=== PATIENT | male | born 1955 | race Caucasian/White ===

== ENCOUNTER 2018-04-26 09:22 | Inpatient (IN) ==
[2018-04-26 10:31] LABS: Hematocrit 43.6 % (42.0-52.0); Hemoglobin 15.4 gm/dL (13.5-18.0); Mean Cell Volume 94.4 fl (78-100); Mean Corpuscular Hemoglobin 33.3 pg (27-31); Mean Corpuscular Hgb Conc 35.3 g/dl (32-36); Mean Platelet Volume 10.4 fl (8-11.3); Neutrophil # 17.4 K/mm3 (1.3-6.0); Neutrophil % 89.1 % (42-75.0); Platelet Count 127 K/mm3 (150-450); Red Blood Count 4.62 M/mm3 (4.7-6.0); Red Cell Distribution Width 12.5 % (11.5-14.0); White Blood Count 19.5 K/mm3 (4.0-10.5)
[2018-04-26] MEDS ORDERED: NORMAL SALINE 1,000 ML IV ONE ×2 (10:47→11:38)
[2018-04-26 11:03] LABS: ALT 36 U/L (19-67); AST 38 U/L (0-48); Albumin * 3.7 gm/dl (3.4-5.0); Alkaline Phosphatase * 57 U/L (50-170); Anion Gap 16.8 mmol/L (6.8-13.8); BUN/Creatinine Ratio 20.5 (9.0-21.6); Bilirubin, Total 2.5 mg/dL (0.0-1.1); Blood Urea Nitrogen 32 mg/dL (6-23); Ca. Corrected For Albumin 9.3 mg/dL (8.4-10.2); Calcium * 9.4 mg/dL (7.9-10.9); Carbon Dioxide 28.4 mmol/L (24-32.6); Chloride 88 mmol/L (97-106); Glucose * 184 mg/dL (70-110); Lipase 59 U/L (73-393); Potassium 3.2 mmol/L (3.4-4.6); Sodium 130 mmol/L (132-142); Total Protein 7.4 gm/dL (6.2-8.2)
[2018-04-26 11:04] LABS: Troponin I 0.022 ng/mL (0.00-0.10)
--- NOTE | 2018-04-26 11:07 | ERNOTE ---
Back Pain ER HPI Date of Service: 04/26/18 Presenting Symptoms: injury/pain to back, hx chronic back pain Time Seen by Provider: 04/26/18 10:00 Source: patient Exam Limitations: no limitations Immunizations: IMMUNIZATION HX Immunizations Up to Date Yes History of Influenza Vaccine No Hx Pneumococcal Vaccination No Allergies/Adverse Reactions: Allergies latex Allergy (Intermediate, Verified 01/27/18 10:04) Hives paroxetine [From Paxil] Adverse Reaction (Verified 01/27/18 10:04) Altered Mental Status Home Medications: HOME MEDICATIONS Acamprosate Calcium [Campral] 666 mg PO TID #60 tab 10/19/17 [Last Taken Unknown] Folic Acid 1 mg PO DAILY #14 tab 10/19/17 [Last Taken Unknown] Naltrexone HCl [ReVia] 50 mg PO HS #30 tab 10/19/17 [Last Taken Unknown] Thiamine HCl [Vitamin B-1] 100 mg PO DAILY #14 tab 10/19/17 [Last Taken Unknown] gabapentin 300 mg capsule 300 mg PO TID 30 Days #90 cap 01/28/18 [Last Taken Unknown] vilazodone 40 mg tablet 40 mg PO DAILY #30 tab 01/28/18 [Last Taken Unknown] lorazepam 0.5 mg tablet 0.5 mg PO QID PRN tab 03/16/18 [Last Taken Unknown] multivitamin tablet 1 tab PO DAILY 03/16/18 [Last Taken Unknown] Narrative: patient stated the 2 days ago he tripped over his cat and fell into a fan causing him to have low back and flank pain. patient states he hasn't eaten or drank in a few days and has "just been lying around the house." patient does have a history or ETOH abuse. CIWA score today is 5. states hes not drinking as much as he normally does. Date (Duration): 04/26/18 Timing: Reports: constant Quality/Severity: Reports: mild Activities at Onset: Reports: none Recent Injury?: Reports: yes Possible Precipitating Factor: Reports: fall/near fall Modifying Factors - (Improves): Reports: nothing Modifying Factors - (Worsens): Reports: movement to right, movement to left Associated Symptoms: Reports: difficulty walking Prior Treament: Reports: recently seen Review of Systems - Review of Systems Constitutional: Present: See HPI EYE: Present: no symptoms reported ENT: Present: no symptoms reported Respiratory: Present: no symptoms reported Cardiology: Present: See HPI Gastrointestinal/Abdominal: Present: no symptoms reported Genitourinary: Present: no symptoms reported Musculoskeletal: Present: See HPI Skin: Present: no symptoms reported Neurological: Present: no symptoms reported Endocrine: Present: no symptoms reported Hematologic/Lymphatic: Present: no symptoms reported Psych: Present: depressed All Other Systems: All systems neg except as marked Medical History (Last Updated 03/16/18 @ 10:29 by Frieda Walsh) Gout Onset Date: Unknown Spinal stenosis Acute ulcer of stomach Onset Date: Unknown Alcohol abuse Anxiety Onset Date: Unknown Depression Onset Date: Unknown Low back pain Onset Date: Unknown Alcoholic delirium Gastrointestinal tract hemorrhage Onset Date: Unknown Surgical History: Surgical History (Last Reviewed 01/27/18 @ 10:10 by Artis Delaney) History of spinal fusion Onset Date: ~2002 Family History: Family History (Last Updated 03/16/18 @ 10:30 by Frieda Walsh) Mother COPD (chronic obstructive pulmonary disease) Sister No problems noted. Father Kidney stone Grandfather Cancer Heart disease Social History: Preferred Language Norwegian Smoking Status Never smoker Have you smoked in the past 12 No months Do you dip or chew tobacco No Abuse History No History of abuse Psych History No pertinent hx Alcohol Use occasionally Drug Use none Physical Exam - Physical Exam General Appearance: Present: wd/wn, alert, no apparent distress Head Exam: Present: normal inspection, no evidence of injury Eye Exam: Normal inspection: bilateral Ears, Nose, Throat: Present: normal ENT inspection Neck: Present: normal inspection, nontender Respiratory: Present: no respiratory distress, normal breath sounds, chest nontender, lungs clear Cardiovascular/Chest: Present: no murmur, normal peripheral pulses, tachycardia Gastrointestinal/Abdominal: Present: normal bowel sounds, nontender, nondistended, soft, no organomegaly Extremity Exam: Present: normal inspection, non-tender, normal range of motion, no edema Neurological Exam: Present: alert, oriented, normal mood/affect, no motor/sensory deficits Skin Exam: Present: normal color, warm/dry Lymphatic Exam: Present: no adenopathy ED Progress - Results and Orders Patient's Lab Results:: I have reviewed the patient's lab results. - Vital Signs Patient's Vital Signs:: I have reviewed the patient's vital signs. Vital Signs: Vital Signs 04/26/18 09:57 04/26/18 10:09 04/26/18 10:33 Temperature 36.8 C Pulse Rate 135 H 123 H 117 H Respiratory Rate 14 12 22 H Blood Pressure 91/55 155/97 H 152/82 H O2 Sat by Pulse Oximetry 97 98 98 - EKG EKG: other - sinus tach EKG read: Reviewed by me - CT/Ultrasound CT/Ultrasound Narrative: FINDINGS: CTA Chest: Pulmonary Arteries: Diagnostic Quality (for pulmonary arteries): Opacification of the pulmonary arterial branches is adequate. The breath hold is adequate. There is streak artifact from contrast material within the superior vena cava, which affects the adjacent pulmonary arteries. No definite filling defects are noted to suggest pulmonary thromboembolism. No definite axial CT image findings of right heart strain. Aorta: Thoracic aorta unremarkable without acute findings. Multiple artifacts related to cardiac motion and streak artifact from contrast in the adjacent superior vena cava noted. Mediastinum: No mediastinal mass or lymphadenopathy noted. There is a large low-density lesion within the right thyroid gland measuring approximately 3.0 x 1.9 cm. There is diffuse wall thickening of the esophagus, especially the mid to distal segment in a circumferential manner without evidence for pneumatosis. There is stranding of the adjacent mediastinal fat. Some stranding adjacent to the descending aorta is likely secondary to the adjacent esophageal process rather than due to the aorta. The lumen of the esophagus appears to be fluid-filled. There is no definite signs of or radiodense foreign body. Heart: No significant pericardial effusion noted. Lung Parenchyma: The lung parenchyma demonstrates no focal consolidation. Bibasilar linear opacities are likely atelectasis or scar. There is a densely calcified nodule in the right lower lobe lateral basal segment suggestive of old granulomatous disease. The lung parenchyma appears to be somewhat hyperlucent, suggestive of potential emphysematous changes. Correlate clinically with history of smoking. Central Airways: The trachea and bronchi grossly patent. Pleural Spaces: Trace bilateral pleural fluid noted. No definable pneumothorax. Bones: Bones are grossly intact. Chest Wall/Axillae: Anterior chest wall is grossly unremarkable. Axillary regions are also grossly normal. Upper Abdomen: Please see the abdominal CT report for additional details. IMPRESSION: 1. Negative for acute pulmonary thromboembolism. 2. Negative for acute thoracic aortic finding. 3. Diffuse esophageal wall thickening with surrounding inflammatory changes, predominantly affecting the mid to distal segment. Correlate clinically for esophagitis. Other considerations also include possible neoplasm. Consider further evaluation of the esophagus (e.g. endoscopy). 4. Incidental low density lesion of the right thyroid gland. Recommend nonemergent thyroid ultrasound. Electronically signed by Janee Dunn M.D.. CT Abdomen/Pelvis W/C * ABDOMEN: Lungs: Please see the chest CT report for additional details regarding the intrathoracic findings to include the esophageal wall thickening. Liver: Enlarged, hypodense appearance suggestive of fatty infiltration of the liver. Gallbladder: The gallbladder appears to be somewhat distended but no definite signs of calcified gallstones or adjacent inflammatory changes noted. There is however some relatively hyperdense appearance of the adjacent liver parenchyma which could represent fatty sparing although could also represent enhancement related to inflammatory changes. Correlate clinically for possible gallbladder disease. Pancreas: The pancreas appears to be normal in appearance. Spleen: The spleen is unremarkable. Adrenal glands: Unremarkable without focal finding. Kidneys: Normal appearance without focal mass or hydronephrosis. Aorta: Mild calcified atherosclerotic plaques noted. Largest transaxial diameter of the infrarenal segment is 1.9 cm. Retroperitoneum: No pathologic size lymphadenopathy or mass within the retroperitoneum is seen. Stomach: Fluid-filled stomach is grossly unremarkable. Small bowel: Unopacified small bowel loops are grossly unremarkable. Colon: The colon appears to be grossly unremarkable. Normal caliber appendix seen, best seen on series 4 image 58-63. Abdominal wall: Small fat-containing umbilical hernia. No evidence for intraperitoneal free air. PELVIS: Contrast-filled portions of the urinary bladder demonstrates no focal finding. Prostate enlargement suggested. No definite signs of pelvic lymphadenopathy or masses are noted. No evidence of free pelvic fluid noted. Bones: Slight deformities of the anterior aspects of the left ninth, 10th, and 11th ribs, suggestive of nondisplaced rib fractures. Patient has surgical changes of the L4-L5 level of the spine. IMPRESSION: 1. Distended appearance of the gallbladder, with adjacent liver enhancement versus fatty sparing. Correlate clinically for acute cholecystitis or other gallbladder disease. Consider gallbladder ultrasound. 2. Multiple left-sided rib fractures involving the left ninth, 10th, and 11th ribs. 3. There is no CT signs of acute intra-abdominal or pelvic organ injury. 4. Additional comments are as above. Janee Dunn MD - Progress/Reassessment Chief Complaint: Back Pain Progress:: Improved Plan - Plan Plan: admission, per dr nino Departure Clinical Impression: Sepsis Qualifiers: Sepsis type: sepsis due to unspecified organism Qualified Code(s): A41.9 - Sepsis, unspecified organism Ribs, multiple fractures Qualifiers: Encounter type: initial encounter Fracture type: closed Laterality: left Qualified Code(s): S22.42XA - Multiple fractures of ribs, left side, initial encounter for closed fracture - Departure Disposition: Still a patient Condition: Stable
[2018-04-26] MEDS ORDERED: CEFEPIME HCL 1 GM in DEXTROSE 5 % IN WATER 100 ML IV ONE ×2 (11:34)
[2018-04-26 12:40] LABS: Urine Bilirubin Negative (NEGATIVE); Urine Blood Negative /ul (NEGATIVE); Urine Ketone Negative (NEGATIVE); Urine Nitrite Negative (NEGATIVE); Urine Protein 30 mg/dL (NEGATIVE); Urine Urobilinogen >=8.0 EU/dl (NORMAL); Urine pH 7.5 pH (5.0-7.0)
[2018-04-26] MEDS: MULTIVIT INFUSN,ADULT 4,VIT K 10 ML, THIAMINE HCL 100 MG in NORMAL SALINE 1,000 ML IV SCH (12:40)
[2018-04-26 12:54] LABS: Urine Appearance Clear (CLEAR); Urine Bacteria None Seen; Urine Color Amber; Urine Fine Granular Cast TRACE /LPF; Urine Hyaline Cast 0-5 /LPF; Urine RBC None Seen /hpf (0-5); Urine WBC 0-5 /hpf (0-5)
[2018-04-26 12:55] LABS: Cocaine Ur Negative (NEGATIVE); Urine Barbiturate Negative (NEGATIVE); Urine Benzodiazepines Negative (NEGATIVE); Urine Opiates Negative (NEGATIVE); Urine PCP Negative (NEGATIVE); Urine THC Negative (NEGATIVE)
--- NOTE | 2018-04-26 16:09 | HP ---
Chief Complaint - Chief Complaint Date of Service: 04/26/18 Time of Service: 15:57 Chief Complaint: left flank pain History of Present Illness: Arie Coburn, is a 62-year-old white male, with previous medical history of generalized anxiety disorder, chronic alcohol abuse, spinal stenosis, gastric ulcer, who was admitted to the hospital on 04/26/2018 because of left lung pain. 4 days prior to admission the patient was coming out of his bathroom and it was dark when he accidentally tripped over his cat . He spinned around and fell down hitting the electric fan on his left flank area. Since then he had been having excruciating pain and had been just lying down in his house with very little food and fluid intake. He vomited once with the pain. The pain could not be tolerated today and so he went to the emergency room. In the emergency room he was found to have multiple rib fractures involving the 9,10 and 11th ribs on the left. his BP ws 91/55 and tachycardic. He also had elevated BUN/creatinine and lactic acid as well as elevated white blood cell count. He was given IV boluses of fluid and 1 dose of Maxipime for possible sepsis. His CT scan of the chest showed no acute cardiopulmonary findings but mentioned on about possible esophagitis. A CT scan of the abdomen and pelvis showed no acute intra- abdominal findings except for some gallbladder distention on correlate for acute cholecystitis. He was then admitted for further evaluation and treatment. His last alcohol intake was 3 days ago and it was just a small amount of wine per patient. Medical History (Last Reviewed 04/26/18 @ 14:35 by Yaa Duke RN) Gout Onset Date: Unknown Spinal stenosis Acute ulcer of stomach Onset Date: Unknown Alcohol abuse Anxiety Onset Date: Unknown Depression Onset Date: Unknown Low back pain Onset Date: Unknown Alcoholic delirium Gastrointestinal tract hemorrhage Onset Date: Unknown Surgical History: Surgical History (Last Reviewed 04/26/18 @ 14:35 by Yaa Duke RN) History of spinal fusion Onset Date: ~2002 Family History: Family History (Last Reviewed 04/26/18 @ 14:35 by Yaa Duke RN) Mother COPD (chronic obstructive pulmonary disease) Sister No problems noted. Father Kidney stone Grandfather Cancer Heart disease Social History: Patient Lives/Resources Home Utilized Occupation school district Preferred Language Nauruan Do you have any rastafarian or Yes: [employer] cultural preference? Smoking Status Never smoker Have you smoked in the past 12 No months Do you dip or chew tobacco No Abuse History No History of abuse Psych History No pertinent hx Alcohol Use occasionally Drug Use none Review Of Systems (GEN) - Review of Systems Generalized/Overall Review: Present: Weakness. Absent: Chills, Fever Respiratory: Absent: Cough, Shortness of Breath, Orthopnea Cardiac: Absent: Chest Pain, Edema, Palpitations Abdominal: Present: Nausea, Vomiting Genitourinary: Absent: Urgency, Frequency Musculoskeletal: Present: Back Pain, Other - left flank pain. Absent: Joint Pain Neurological: Absent: Headache, Seizure Immunizations: IMMUNIZATION HX Immunizations Up to Date Yes History of Influenza Vaccine No Hx Pneumococcal Vaccination No Allergies/Adverse Reactions: Allergies Allergy/AdvReac Type Severity Reaction Status Date / Time latex Allergy Intermediate Hives Verified 01/27/18 10:04 paroxetine [From Paxil] AdvReac Altered Verified 01/27/18 10:04 Mental Status Home Medications: HOME MEDICATIONS Folic Acid 1 mg PO DAILY #14 tab 10/19/17 [Last Taken Unknown] Thiamine HCl [Vitamin B-1] 100 mg PO DAILY #14 tab 10/19/17 [Last Taken Unknown] gabapentin 300 mg capsule 300 mg PO TID 30 Days #90 cap 01/28/18 [Last Taken Unknown] vilazodone 40 mg tablet 40 mg PO DAILY #30 tab 01/28/18 [Last Taken 04/25/18] lorazepam 0.5 mg tablet 0.5 mg PO QID PRN tab 03/16/18 [Last Taken 04/24/18] multivitamin tablet 1 tab PO DAILY 03/16/18 [Last Taken Unknown] Exam - Exam Vital Signs: Vital Signs - Last Taken Temp 37.2 C 04/26/18 14:00 Pulse 111 H 04/26/18 14:00 Resp 20 04/26/18 14:00 BP 144/81 04/26/18 14:00 Pulse Ox 98 04/26/18 14:00 Constitutional: Present: Alert, Oriented x3, Cooperative ENT Exam: Present: hearing grossly normal Eye Exam: bilateral eye: normal inspection, PERRL, EOMI Neck: Present: supple Back Exam: Present: CVA tenderness (L) Respiratory: Present: decreased breath sounds, No rales, No wheezing Cardiovascular/Chest: Present: regular rate, rhythm, no JVD, no murmur Abdomen: Present: Normal bowel sounds, nontender, obese, firm, negative Ovalle sign, hypoactive Extremity: Present: no pedal edema, no calf tenderness Diagnostic Studies: Abnormal Lab Results 04/26/18 04/26/18 04/26/18 Range/Units 10:24 10:24 10:24 WBC 19.5 H (4.0-10.5) K/mm3 RBC 4.62 L (4.7-6.0) M/mm3 MCH 33.3 H (27-31) pg Plt Count 127 L (150-450) K/mm3 Immature Gran % (Auto) 0.90 H (0.001-0.429) % Immature Gran # (Auto) 0.17 H (0.000-0.0310) K/mm3 Neutrophils % 89.1 H (42-75.0) % Lymphocytes % 2.0 L (20-51) % Neutrophils # 17.4 H (1.3-6.0) K/mm3 Lymphocytes # 0.39 L (1.5-3.5) k/mm3 Monocytes # 1.5 H (0.0-1.0) k/mm3 D-Dimer 0.75 H (0.19-0.49) ug/mL Sodium 130 L (132-142) mmol/L Potassium 3.2 L (3.4-4.6) mmol/L Chloride 88 L (97-106) mmol/L Anion Gap 16.8 H (6.8-13.8) mmol/L BUN 32 H D (6-23) mg/dL Creatinine 1.56 H D (0.4-1.4) mg/dL Est GFR (Non-Af Amer) 48 L D (60-130) mL/min Random Glucose 184 H (70-110) mg/dL Lactic Acid, Venous (0.4-2.0) mmol/L Total Bilirubin 2.5 H (0.0-1.1) mg/dL Creatine Kinase (0-259) U/L Lipase 59 L (73-393) U/L Urine Protein (NEGATIVE) mg/dL Urine Urobilinogen (NORMAL) EU/dl Hyaline Casts (NONE) /LPF 04/26/18 04/26/18 04/26/18 Range/Units 10:50 12:32 13:36 WBC (4.0-10.5) K/mm3 RBC (4.7-6.0) M/mm3 MCH (27-31) pg Plt Count (150-450) K/mm3 Immature Gran % (Auto) (0.001-0.429) % Immature Gran # (Auto) (0.000-0.0310) K/mm3 Neutrophils % (42-75.0) % Lymphocytes % (20-51) % Neutrophils # (1.3-6.0) K/mm3 Lymphocytes # (1.5-3.5) k/mm3 Monocytes # (0.0-1.0) k/mm3 D-Dimer (0.19-0.49) ug/mL Sodium (132-142) mmol/L Potassium (3.4-4.6) mmol/L Chloride (97-106) mmol/L Anion Gap (6.8-13.8) mmol/L BUN (6-23) mg/dL Creatinine (0.4-1.4) mg/dL Est GFR (Non-Af Amer) (60-130) mL/min Random Glucose (70-110) mg/dL Lactic Acid, Venous 5.0 H* 2.5 H* (0.4-2.0) mmol/L Total Bilirubin (0.0-1.1) mg/dL Creatine Kinase (0-259) U/L Lipase (73-393) U/L Urine Protein 30 H (NEGATIVE) mg/dL Urine Urobilinogen >=8.0 H (NORMAL) EU/dl Hyaline Casts 0-5 H (NONE) /LPF 04/26/18 Range/Units 13:36 WBC (4.0-10.5) K/mm3 RBC (4.7-6.0) M/mm3 MCH (27-31) pg Plt Count (150-450) K/mm3 Immature Gran % (Auto) (0.001-0.429) % Immature Gran # (Auto) (0.000-0.0310) K/mm3 Neutrophils % (42-75.0) % Lymphocytes % (20-51) % Neutrophils # (1.3-6.0) K/mm3 Lymphocytes # (1.5-3.5) k/mm3 Monocytes # (0.0-1.0) k/mm3 D-Dimer (0.19-0.49) ug/mL Sodium (132-142) mmol/L Potassium (3.4-4.6) mmol/L Chloride (97-106) mmol/L Anion Gap (6.8-13.8) mmol/L BUN (6-23) mg/dL Creatinine (0.4-1.4) mg/dL Est GFR (Non-Af Amer) (60-130) mL/min Random Glucose (70-110) mg/dL Lactic Acid, Venous (0.4-2.0) mmol/L Total Bilirubin (0.0-1.1) mg/dL Creatine Kinase 344 H (0-259) U/L Lipase (73-393) U/L Urine Protein (NEGATIVE) mg/dL Urine Urobilinogen (NORMAL) EU/dl Hyaline Casts (NONE) /LPF Laboratory Results WBC 19.5 K/mm3 (4.0-10.5) H 04/26/18 10:24 RBC 4.62 M/mm3 (4.7-6.0) L 04/26/18 10:24 Hgb 15.4 gm/dL (13.5-18.0) 04/26/18 10:24 Hct 43.6 % (42.0-52.0) 04/26/18 10:24 MCV 94.4 fl (78-100) 04/26/18 10:24 MCH 33.3 pg (27-31) H 04/26/18 10:24 MCHC 35.3 g/dl (32-36) 04/26/18 10:24 RDW 12.5 % (11.5-14.0) 04/26/18 10:24 Plt Count 127 K/mm3 (150-450) L 04/26/18 10:24 MPV 10.4 fl (8-11.3) 04/26/18 10:24 Immature Gran % (Auto) 0.90 % (0.001-0.429) H 04/26/18 10:24 Immature Gran # (Auto) 0.17 K/mm3 (0.000-0.0310) H 04/26/18 10:24 Neutrophils % 89.1 % (42-75.0) H 04/26/18 10:24 Lymphocytes % 2.0 % (20-51) L 04/26/18 10:24 Monocytes % 7.7 % (0.0-9) 04/26/18 10:24 Eosinophils % 0.1 % (0.0-3.0) 04/26/18 10:24 Basophils % 0.2 % (0.0-1.0) 04/26/18 10:24 Nucleated RBC % 0.0 k/mm3 (0-1) 04/26/18 10:24 Neutrophils # 17.4 K/mm3 (1.3-6.0) H 04/26/18 10:24 Lymphocytes # 0.39 k/mm3 (1.5-3.5) L 04/26/18 10:24 Monocytes # 1.5 k/mm3 (0.0-1.0) H 04/26/18 10:24 Eosinophils # 0.0 k/mm3 (0.0-0.7) 04/26/18 10:24 Absolute Basophils 0.0 k/mm3 (0.0-0.1) 04/26/18 10:24 D-Dimer 0.75 ug/mL (0.19-0.49) H 04/26/18 10:24 Sodium 130 mmol/L (132-142) L 04/26/18 10:24 Plasma Sodium 131 mmol/L (130-142) 04/26/18 10:24 Potassium 3.2 mmol/L (3.4-4.6) L 04/26/18 10:24 Chloride 88 mmol/L (97-106) L 04/26/18 10:24 Carbon Dioxide 28.4 mmol/L (24-32.6) 04/26/18 10:24 Anion Gap 16.8 mmol/L (6.8-13.8) H 04/26/18 10:24 BUN 32 mg/dL (6-23) H D 04/26/18 10:24 Creatinine 1.56 mg/dL (0.4-1.4) H D 04/26/18 10:24 Est GFR (Non-Af Amer) 48 mL/min (60-130) L D 04/26/18 10:24 BUN/Creatinine Ratio 20.5 (9.0-21.6) 04/26/18 10:24 Random Glucose 184 mg/dL (70-110) H 04/26/18 10:24 Lactic Acid, Venous 2.5 mmol/L (0.4-2.0) H* 04/26/18 13:36 Calcium 9.4 mg/dL (7.9-10.9) 04/26/18 10:24 Calcium Adj for Albumin 9.3 mg/dL (8.4-10.2) 04/26/18 10:24 Total Bilirubin 2.5 mg/dL (0.0-1.1) H 04/26/18 10:24 AST 38 U/L (0-48) 04/26/18 10:24 ALT 36 U/L (19-67) 04/26/18 10:24 Alkaline Phosphatase 57 U/L (50-170) 04/26/18 10:24 Creatine Kinase 344 U/L (0-259) H 04/26/18 13:36 Troponin I 0.022 ng/mL (0.00-0.10) 04/26/18 10:24 Total Protein 7.4 gm/dL (6.2-8.2) 04/26/18 10:24 Albumin 3.7 gm/dl (3.4-5.0) 04/26/18 10:24 Lipase 59 U/L (73-393) L 04/26/18 10:24 TSH 1.901 uIU/mL (0.358-3.74) 04/26/18 10:24 Urine Color Kathryn 04/26/18 12:32 Urine Appearance Clear (CLEAR) 04/26/18 12:32 Urine pH 7.5 pH (5.0-7.0) 04/26/18 12:32 Ur Specific [place] 1.010 SP.GR. (1.005-1.030) 04/26/18 12:32 Urine Protein 30 mg/dL (NEGATIVE) H 04/26/18 12:32 Urine Glucose (UA) Negative mg/dL (NEGATIVE) 04/26/18 12:32 Urine Ketones Negative mg/dL (NEGATIVE) 04/26/18 12:32 Urine Blood Negative /ul (NEGATIVE) 04/26/18 12:32 Urine Nitrate Negative (NEGATIVE) 04/26/18 12:32 Urine Bilirubin Negative mg/dl (NEGATIVE) 04/26/18 12:32 Prot Sulfosalicylic Acd 1+ mg/dL (0) 04/26/18 12:32 Urine Urobilinogen >=8.0 EU/dl (NORMAL) H 04/26/18 12:32 Ur Leukocyte Esterase Negative /ul (NEGATIVE) 04/26/18 12:32 Urine RBC None seen /hpf (0-5) 04/26/18 12:32 Urine WBC 0-5 /hpf (0-5) 04/26/18 12:32 Ur Epithelial Cells 0-5 /hpf (0-5) 04/26/18 12:32 Urine Bacteria None seen (NONE) 04/26/18 12:32 Hyaline Casts 0-5 /LPF (NONE) H 04/26/18 12:32 Fine Granular Casts Trace /LPF (NONE) 04/26/18 12:32 Urine Culture Comments No culture indicated 04/26/18 12:32 Urine Opiates Screen Negative (NEGATIVE) 04/26/18 12:32 Barbiturate Screen Negative (NEGATIVE) 04/26/18 12:32 Ur Phencyclidine Scrn Negative (NEGATIVE) 04/26/18 12:32 Urine Amphetamine Negative (NEGATIVE) 04/26/18 12:32 U Benzodiazepines Scrn Negative (NEGATIVE) 04/26/18 12:32 Urine Cocaine Screen Negative (NEGATIVE) 04/26/18 12:32 Urine Marijuana (THC) Negative (NEGATIVE) 04/26/18 12:32 Ethyl Alcohol Less than 3.0 mg/dL (0.0-10.0) 04/26/18 10:24 Assessment/Plan - Assessment/Plan (1) Sepsis Assessment: r/o acute cholecystitis. will get an US of the GB and biliary tree. will cover with IV antibiotics for now. Problem: Suspected Qualifiers: Sepsis type: sepsis due to unspecified organism Qualified Code(s): A41.9 - Sepsis, unspecified organism (2) Ribs, multiple fractures Assessment: secondary to trauma of fall Problem: Acute Qualifiers: Encounter type: initial encounter Fracture type: closed Laterality: left Qualified Code(s): S22.42XA - Multiple fractures of ribs, left side, initial encounter for closed fracture (3) Dehydration Assessment: due to poor fluid intake. continue with IVF Problem: Resolved (4) Acute kidney injury Assessment: likely prerenal Problem: Acute (5) Hypokalemia Assessment: will supplement Problem: Resolved (6) Anxiety and depression Assessment: continue with home meds. Problem: Acute (7) Elevated CK Assessment: due to fall. continue with IVF Problem: Acute (8) Leukocytosis Assessment: likely inflammatory from stress of injury vs infection.will get an US of the GB. r/o sepsis. will cover with IV antibiotics for now. Problem: Acute (9) Lactic acidosis Assessment: likely due to hypoperfusion from hypovolemia r/o sepsis Problem: Acute (10) Thyroid lesion Assessment: right lobe. will do TUS on outpatient basis. Problem: Acute
[2018-04-26] MEDS ORDERED: LORazepam 0.5 MG TABLET PO PRN (16:23)
[2018-04-26] MEDS ORDERED: PANTOPRAZOLE SODIUM 40 MG in NORMAL SALINE 100 ML IV ONE (16:26)
[2018-04-26] MEDS ORDERED: POTASSIUM CHLORIDE IN WATER 100 ML IV SCH ×2 (16:30→18:30)
[2018-04-26] MEDS ORDERED: CIPROFLOXACIN IN 5 % DEXTROSE 400 MG/200 ML BAG IV SCH (16:30)
[2018-04-26] MEDS: metroNIDAZOLE/SODIUM CHLORIDE 500 MG/100 ML BAG IV SCH (17:31)
[2018-04-26] MEDS: CIPROFLOXACIN IN 5 % DEXTROSE 400 MG/200 ML BAG IV SCH (20:04)
[2018-04-27] MEDS: MULTIVIT INFUSN,ADULT 4,VIT K 10 ML, THIAMINE HCL 100 MG in NORMAL SALINE 1,000 ML IV SCH (00:26)
[2018-04-27] MEDS: NORMAL SALINE 1,000 ML IV PRN ×3 (00:28→20:01)
[2018-04-27] MEDS: ENOXAPARIN SODIUM 40 MG/0.4 ML SYRG SC SCH ×2 (00:29→20:05)
[2018-04-27] MEDS: oxyCODONE HCL/ACETAMINOPHEN 1 TAB TABLET PO PRN ×4 (00:30→22:10)
[2018-04-27] MEDS: GABAPENTIN 300 MG CAPSULE PO SCH ×4 (00:31→20:06)
[2018-04-27] MEDS: metroNIDAZOLE/SODIUM CHLORIDE 500 MG/100 ML BAG IV SCH ×2 (00:33→08:56)
[2018-04-27 05:32] LABS: Hematocrit 30.7 % (42.0-52.0); Hemoglobin 10.8 gm/dL (13.5-18.0); Mean Cell Volume 94.8 fl (78-100); Mean Corpuscular Hemoglobin 33.3 pg (27-31); Mean Corpuscular Hgb Conc 35.2 g/dl (32-36); Mean Platelet Volume 11.1 fl (8-11.3); Neutrophil # 9.7 K/mm3 (1.3-6.0); Neutrophil % 76.8 % (42-75.0); Platelet Count 97 K/mm3 (150-450); Red Blood Count 3.24 M/mm3 (4.7-6.0); Red Cell Distribution Width 12.3 % (11.5-14.0); White Blood Count 12.7 K/mm3 (4.0-10.5)
[2018-04-27 05:38] LABS: Calcium * 7.6 mg/dL (7.9-10.9); Carbon Dioxide 28.1 mmol/L (24-32.6); Estimated Creat Clear 84.2
[2018-04-27 06:00] LABS: Anion Gap 7.4 mmol/L (6.8-13.8)
[2018-04-27 06:06] LABS: Potassium 2.5 mmol/L (3.4-4.6)
[2018-04-27] MEDS ORDERED: POTASSIUM CHLORIDE IN WATER 100 ML IV SCH (06:30)
[2018-04-27] MEDS ORDERED: POTASSIUM CHLORIDE 20 MEQ in NORMAL SALINE 1,000 ML IV SCH (06:45)
[2018-04-27] MEDS: CIPROFLOXACIN IN 5 % DEXTROSE 400 MG/200 ML BAG IV SCH (07:41)
--- NOTE | 2018-04-27 08:43 | PN ---
Subjective - Date and Time Seen Date: 04/27/18 Time: 08:36 Subjective Narrative: patient feels better. main complaint is numbness of is 4th and 5th digits of his right hand. Had his US. Afebrile. Objective - Review of Systems Generalized/Overall Review: Denies: Weakness, Chills, Fever Cardiac: Denies: Chest Pain, Edema, Palpitations Abdominal: Denies: Nausea, Vomiting Genitourinary Symptoms: Denies: Urgency, Frequency Musculoskeletal Complaints: Reports: Joint Pain Neurological: Reports: Numbness - Vitals Vitals: Last Vital Signs Temp 37 C 04/27/18 07:11 Pulse 74 04/27/18 07:11 Resp 18 04/27/18 07:11 BP 128/76 04/27/18 07:11 Pulse Ox 94 04/27/18 07:11 - Abnormal Lab Findings Abnormal Lab Findings: Abnormal Lab Results 04/26/18 04/26/18 04/26/18 Range/Units 10:24 10:24 10:24 WBC 19.5 H (4.0-10.5) K/mm3 RBC 4.62 L (4.7-6.0) M/mm3 Hgb (13.5-18.0) gm/dL Hct (42.0-52.0) % MCH 33.3 H (27-31) pg Plt Count 127 L (150-450) K/mm3 Immature Gran % (Auto) 0.90 H (0.001-0.429) % Immature Gran # (Auto) 0.17 H (0.000-0.0310) K/mm3 Neutrophils % 89.1 H (42-75.0) % Lymphocytes % 2.0 L (20-51) % Monocytes % (0.0-9) % Neutrophils # 17.4 H (1.3-6.0) K/mm3 Lymphocytes # 0.39 L (1.5-3.5) k/mm3 Monocytes # 1.5 H (0.0-1.0) k/mm3 D-Dimer 0.75 H (0.19-0.49) ug/mL Sodium 130 L (132-142) mmol/L Potassium 3.2 L (3.4-4.6) mmol/L Chloride 88 L (97-106) mmol/L Anion Gap 16.8 H (6.8-13.8) mmol/L BUN 32 H D (6-23) mg/dL Creatinine 1.56 H D (0.4-1.4) mg/dL Est GFR (Non-Af Amer) 48 L D (60-130) mL/min BUN/Creatinine Ratio (9.0-21.6) Random Glucose 184 H (70-110) mg/dL Lactic Acid, Venous (0.4-2.0) mmol/L Calcium (7.9-10.9) mg/dL Total Bilirubin 2.5 H (0.0-1.1) mg/dL Creatine Kinase (0-259) U/L Lipase 59 L (73-393) U/L Urine Protein (NEGATIVE) mg/dL Urine Urobilinogen (NORMAL) EU/dl Hyaline Casts (NONE) /LPF 04/26/18 04/26/18 04/26/18 Range/Units 10:50 12:32 13:36 WBC (4.0-10.5) K/mm3 RBC (4.7-6.0) M/mm3 Hgb (13.5-18.0) gm/dL Hct (42.0-52.0) % MCH (27-31) pg Plt Count (150-450) K/mm3 Immature Gran % (Auto) (0.001-0.429) % Immature Gran # (Auto) (0.000-0.0310) K/mm3 Neutrophils % (42-75.0) % Lymphocytes % (20-51) % Monocytes % (0.0-9) % Neutrophils # (1.3-6.0) K/mm3 Lymphocytes # (1.5-3.5) k/mm3 Monocytes # (0.0-1.0) k/mm3 D-Dimer (0.19-0.49) ug/mL Sodium (132-142) mmol/L Potassium (3.4-4.6) mmol/L Chloride (97-106) mmol/L Anion Gap (6.8-13.8) mmol/L BUN (6-23) mg/dL Creatinine (0.4-1.4) mg/dL Est GFR (Non-Af Amer) (60-130) mL/min BUN/Creatinine Ratio (9.0-21.6) Random Glucose (70-110) mg/dL Lactic Acid, Venous 5.0 H* 2.5 H* (0.4-2.0) mmol/L Calcium (7.9-10.9) mg/dL Total Bilirubin (0.0-1.1) mg/dL Creatine Kinase (0-259) U/L Lipase (73-393) U/L Urine Protein 30 H (NEGATIVE) mg/dL Urine Urobilinogen >=8.0 H (NORMAL) EU/dl Hyaline Casts 0-5 H (NONE) /LPF 04/26/18 04/27/18 04/27/18 Range/Units 13:36 05:00 05:00 WBC 12.7 H D (4.0-10.5) K/mm3 RBC 3.24 L (4.7-6.0) M/mm3 Hgb 10.8 L (13.5-18.0) gm/dL Hct 30.7 L (42.0-52.0) % MCH 33.3 H (27-31) pg Plt Count 97 L (150-450) K/mm3 Immature Gran % (Auto) 0.70 H (0.001-0.429) % Immature Gran # (Auto) 0.09 H (0.000-0.0310) K/mm3 Neutrophils % 76.8 H (42-75.0) % Lymphocytes % 12.5 L (20-51) % Monocytes % 9.6 H (0.0-9) % Neutrophils # 9.7 H (1.3-6.0) K/mm3 Lymphocytes # (1.5-3.5) k/mm3 Monocytes # 1.2 H (0.0-1.0) k/mm3 D-Dimer (0.19-0.49) ug/mL Sodium 131 L (132-142) mmol/L Potassium 2.5 L D (3.4-4.6) mmol/L Chloride (97-106) mmol/L Anion Gap (6.8-13.8) mmol/L BUN 29 H (6-23) mg/dL Creatinine (0.4-1.4) mg/dL Est GFR (Non-Af Amer) (60-130) mL/min BUN/Creatinine Ratio 33.0 H (9.0-21.6) Random Glucose (70-110) mg/dL Lactic Acid, Venous (0.4-2.0) mmol/L Calcium 7.6 L (7.9-10.9) mg/dL Total Bilirubin (0.0-1.1) mg/dL Creatine Kinase 344 H (0-259) U/L Lipase (73-393) U/L Urine Protein (NEGATIVE) mg/dL Urine Urobilinogen (NORMAL) EU/dl Hyaline Casts (NONE) /LPF - Exam Constitutional: Present: Alert, Oriented x3, Cooperative ENT Exam: Present: hearing grossly normal Neck: Present: supple Respiratory: Present: decreased breath sounds. Absent: rales, No wheezing Cardiovascular/Chest: Present: regular rate, rhythm, no JVD, no murmur Abdomen: Present: Normal bowel sounds, soft, nontender, nondistended Extremity: Present: no pedal edema, no calf tenderness Assessment/Plan - Problems/Diagnosis (1) Hypokalemia Problem: Acute Narrative: 2.5 this a.m. will get EKG ADENDUM: EKG shows no flattening of T wave or prolongation of QT interval. Equivocal U wave. (2) Sepsis Problem: Suspected Qualifiers: Sepsis type: sepsis due to unspecified organism Qualified Code(s): A41.9 - Sepsis, unspecified organism Narrative: if US shows no acute cholecystitis. will d/c IV antibiotics, possible discharge in a.m. (3) Ribs, multiple fractures Problem: Acute Qualifiers: Encounter type: initial encounter Fracture type: closed Laterality: left Qualified Code(s): S22.42XA - Multiple fractures of ribs, left side, initial encounter for closed fracture Narrative: continue with pain medications (4) Dehydration Problem: Resolved (5) Acute kidney injury Problem: Resolved (6) Anxiety and depression Problem: Acute (7) Elevated CK Problem: Resolved Narrative: will recheck (8) Leukocytosis Problem: Acute Narrative: improved. likely due to stress of injury r/o infection. will follow up US. 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 will get EMG/NCV on OPD basis. unlikely metabolic neuropathy form chronic alcohol abuse.
[2018-04-27] MEDS: POTASSIUM CHLORIDE 20 MEQ TABLET.SA PO SCH ×3 (08:54→17:17)
[2018-04-27] MEDS: MULTIVITAMINS 1 CAP CAPSULE PO SCH (08:56)
[2018-04-27] MEDS: THIAMINE HCL 100 MG TABLET PO SCH (08:56)
[2018-04-27] MEDS: NON-FORMULARY 1 DOSE DOSE (Vilazodone Hcl [Viibryd] 40 MG) PO SCH (08:57)
[2018-04-27] MEDS: FOLIC ACID 1 MG TABLET PO SCH (09:04)
[2018-04-27] MEDS ORDERED: LIDOCAINE HCL 20 ML UDC MM ONE (15:00)
[2018-04-27] MEDS ORDERED: ACETAMINOPHEN 325 MG TABLET PEG PRN (15:23)
[2018-04-27 20:37] LABS: Anion Gap 5.6 mmol/L (6.8-13.8); BUN/Creatinine Ratio 18.7 (9.0-21.6); Calcium * 7.7 mg/dL (7.9-10.9); Carbon Dioxide 27.7 mmol/L (24-32.6); Estimated Creat Clear 81.4; Potassium 3.3 mmol/L (3.4-4.6)
[2018-04-28] MEDS: oxyCODONE HCL/ACETAMINOPHEN 1 TAB TABLET PO PRN ×3 (02:19→11:58)
[2018-04-28 05:35] LABS: Hematocrit 29.9 % (42.0-52.0); Hemoglobin 10.3 gm/dL (13.5-18.0); Mean Cell Volume 96.1 fl (78-100); Mean Corpuscular Hemoglobin 33.1 pg (27-31); Mean Corpuscular Hgb Conc 34.4 g/dl (32-36); Neutrophil # 4.1 K/mm3 (1.3-6.0); Neutrophil % 63.7 % (42-75.0); Platelet Count 112 K/mm3 (150-450); Red Blood Count 3.11 M/mm3 (4.7-6.0); Red Cell Distribution Width 12.4 % (11.5-14.0); White Blood Count 6.4 K/mm3 (4.0-10.5)
[2018-04-28 05:42] LABS: Anion Gap 6.8 mmol/L (6.8-13.8); BUN/Creatinine Ratio 12.3 (9.0-21.6); Calcium * 7.7 mg/dL (7.9-10.9); Carbon Dioxide 27.4 mmol/L (24-32.6); Estimated Creat Clear 91.5; Potassium 3.2 mmol/L (3.4-4.6)
[2018-04-28] MEDS: GABAPENTIN 300 MG CAPSULE PO SCH (07:04)
--- NOTE | 2018-04-28 08:53 | DS ---
(1) Hypokalemia Problem: Acute (2) Ribs, multiple fractures Problem: Acute Qualifiers: Encounter type: initial encounter Fracture type: closed Laterality: left Qualified Code(s): S22.42XA - Multiple fractures of ribs, left side, initial encounter for closed fracture (3) Dehydration Problem: Resolved (4) Acute kidney injury Problem: Resolved (5) Anxiety and depression Problem: Acute (6) Elevated CK Problem: Resolved (7) Leukocytosis Problem: Resolved (8) Lactic acidosis Problem: Resolved (9) Thyroid lesion Problem: Acute (10) Ulnar nerve neuropathy Problem: Acute Qualifiers: Laterality: right Qualified Code(s): G56.21 - Lesion of ulnar nerve, right upper limb Description of Stay: Arie Coburn, is a 62-year-old white male, with previous medical history of generalized anxiety disorder, chronic alcohol abuse, spinal stenosis, gastric ulcer, who was admitted to the hospital on 04/26/2018 because of left lung pain. 4 days prior to admission the patient was coming out of his bathroom and it was dark when he accidentally tripped over his cat . He spinned around and fell down hitting the electric fan on his left flank area. Since then he had been having excruciating pain and had been just lying down in his house with very little food and fluid intake. He vomited once with the pain. The pain could not be tolerated today and so he went to the emergency room. In the emergency room he was found to have multiple rib fractures involving the 9,10 and 11th ribs on the left. his BP ws 91/55 and tachycardic. He also had elevated BUN/creatinine and lactic acid as well as elevated white blood cell count. He was given IV boluses of fluid and 1 dose of Maxipime for possible sepsis. His CT scan of the chest showed no acute cardiopulmonary findings but mentioned on about possible esophagitis. A CT scan of the abdomen and pelvis showed no acute intra- abdominal findings except for some gallbladder distention on correlate for acute cholecystitis. He was then admitted for further evaluation and treatment. His last alcohol intake was 3 days ago and it was just a small amount of wine per patient. He was started on IV antibiotics anf IVF. His US of the GB did not show acute cholecystitis. His IV antibiotics was stopped. His renal function , Lactic acidosis and WBC went back to normal. Sepsis was ruled out. He is stable to be discharged today and will follow up him in 1 week. He will be released from work till then. Procedures Performed: none Results and Findings: Pending Mircobiology Results 04/26/18 10:50 Blood Blood Culture - Preliminary NO GROWTH 24 HOURS Lab Pending Results 04/26/18 10:24: WBC 19.5 H, RBC 4.62 L, Hgb 15.4, Hct 43.6, MCV 94.4, MCH 33.3 H, MCHC 35.3, RDW 12.5, Plt Count 127 L, MPV 10.4, Immature Gran % (Auto) 0.90 H, Immature Gran # (Auto) 0.17 H, Neutrophils % 89.1 H, Lymphocytes % 2.0 L, Monocytes % 7.7, Eosinophils % 0.1, Basophils % 0.2, Nucleated RBC % 0.0, Neutrophils # 17.4 H, Lymphocytes # 0.39 L, Monocytes # 1.5 H, Eosinophils # 0.0, Absolute Basophils 0.0 04/26/18 10:24: Sodium 130 L, Plasma Sodium 131, Potassium 3.2 L, Chloride 88 L, Carbon Dioxide 28.4, Anion Gap 16.8 H, BUN 32 H D, Creatinine 1.56 H D, Est GFR (Non-Af Amer) 48 L D, BUN/Creatinine Ratio 20.5, Random Glucose 184 H, Calcium 9.4, Calcium Adj for Albumin 9.3, Total Bilirubin 2.5 H, AST 38, ALT 36, Alkaline Phosphatase 57, Troponin I 0.022, Total Protein 7.4, Albumin 3.7, Lipase 59 L, Ethyl Alcohol Less than 3.0 04/26/18 10:24: D-Dimer 0.75 H 04/26/18 10:24: TSH 1.901 04/26/18 10:50: Lactic Acid, Venous 5.0 H* 04/26/18 12:32: Urine Color Kathryn, Urine Appearance Clear, Urine pH 7.5, Ur Specific Plain 1.010, Urine Protein 30 H, Urine Glucose (UA) Negative, Urine K etones Negative, Urine Blood Negative, Urine Nitrate Negative, Urine Bilirubin Negative, Prot Sulfosalicylic Acd 1+, Urine Urobilinogen >=8.0 H, Ur Leukocyte Esterase Negative, Urine RBC None seen, Urine WBC 0-5, Ur Epithelial Cells 0-5, Urine Bacteria None seen, Hyaline Casts 0-5 H, Fine Granular Casts Trace, Urine Culture Comments No culture indicated 04/26/18 12:32: Urine Opiates Screen Negative, Barbiturate Screen Negative, Ur Phencyclidine Scrn Negative, Urine Amphetamine Negative, U Benzodiazepines Scrn Negative, Urine Cocaine Screen Negative, Urine Marijuana (THC) Negative 04/26/18 13:36: Lactic Acid, Venous 2.5 H* 04/26/18 13:36: Creatine Kinase 344 H 04/27/18 05:00: WBC 12.7 H D, RBC 3.24 L, Hgb 10.8 L, Hct 30.7 L, MCV 94.8, MCH 33.3 H, MCHC 35.2, RDW 12.3, Plt Count 97 L, MPV 11.1, Immature Gran % (Auto) 0.70 H, Immature Gran # (Auto) 0.09 H, Neutrophils % 76.8 H, Lymphocytes % 12.5 L, Monocytes % 9.6 H, Eosinophils % 0.2, Basophils % 0.2, Nucleated RBC % 0.0, Neutrophils # 9.7 H, Lymphocytes # 1.59, Monocytes # 1.2 H, Eosinophils # 0.0, Absolute Basophils 0.0 04/27/18 05:00: Sodium 131 L, Plasma Sodium 131, Potassium 2.5 L D, Chloride 98, Carbon Dioxide 28.1, Anion Gap 7.4, BUN 29 H, Creatinine 0.88, Est GFR (Non-Af Amer) 93 D, BUN/Creatinine Ratio 33.0 H, Random Glucose 97 D, Calcium 7.6 L 04/27/18 05:50: Creatine Kinase 203 04/27/18 08:28: Lactic Acid, Venous 1.5 04/27/18 20:02: Sodium 130 L, Plasma Sodium 130, Potassium 3.3 L D, Chloride 100, Carbon Dioxide 27.7, Anion Gap 5.6 L, BUN 17, Creatinine 0.91, Est GFR (Non-Af Amer) 90, BUN/Creatinine Ratio 18.7, Random Glucose 86, Calcium 7.7 L 04/28/18 05:30: WBC 6.4 D, RBC 3.11 L, Hgb 10.3 L, Hct 29.9 L, MCV 96.1, MCH 33.1 H, MCHC 34.4, RDW 12.4, Plt Count 112 L, MPV 10.0, Immature Gran % (Auto) 0.50 H, Immature Gran # (Auto) 0.03, Neutrophils % 63.7, Lymphocytes % 19.8 L, Monocytes % 13.3 H, Eosinophils % 2.2, Basophils % 0.5, Nucleated RBC % 0.0, Neutrophils # 4.1, Lymphocytes # 1.27 L, Monocytes # 0.9, Eosinophils # 0.1, Absolute Basophils 0.0 04/28/18 05:30: Sodium 132, Plasma Sodium 132, Potassium 3.2 L, Chloride 101, Carbon Dioxide 27.4, Anion Gap 6.8, BUN 10, Creatinine 0.81, Est GFR (Non-Af Amer) 103, BUN/Creatinine Ratio 12.3, Random Glucose 89, Calcium 7.7 L Discharge Location: Home Disposition: Home self-care Condition: Stable Discharge Activity: Activity as tolerated Discharge Diet: General/regular food, Other - Krich diet Referrals: Dana Berkowitz MD [Primary Care Provider] - Additional Patient Instructions (free text): Follow up with PCP in 1 week. Prescriptions (Any new or edited meds): oxyCODONE HCL/ACETAMINOPHEN [Percocet 5 MG/325 MG] 1 tab PO Q4H PRN #30 tablet PRN Reason: Moderate Pain (Pain Scale 4-6) Complete Home Medications List: Complete Home Medication List: Folic Acid 1 mg PO DAILY #14 tab 10/19/17 Thiamine HCl [Vitamin B-1] 100 mg PO DAILY #14 tab 10/19/17 gabapentin 300 mg capsule 300 mg PO TID 30 Days #90 cap 01/28/18 vilazodone 40 mg tablet 40 mg PO DAILY #30 tab 01/28/18 lorazepam 0.5 mg tablet 0.5 mg PO QID PRN tab 03/16/18 multivitamin tablet 1 tab PO DAILY 03/16/18 oxyCODONE HCL/ACETAMINOPHEN [Percocet 5 MG/325 MG] 1 tab PO Q4H PRN #30 tablet 04/28/18
[2018-04-28] MEDS: NON-FORMULARY 1 DOSE DOSE (Vilazodone Hcl [Viibryd] 40 MG) PO SCH (09:37)
[2018-04-28] MEDS: THIAMINE HCL 100 MG TABLET PO SCH (09:37)
[2018-04-28] MEDS: FOLIC ACID 1 MG TABLET PO SCH (09:37)
[2018-04-28] MEDS: MULTIVITAMINS 1 CAP CAPSULE PO SCH (09:37)
[2018-04-28] MEDS: POTASSIUM CHLORIDE 20 MEQ TABLET.SA PO SCH (09:40)
[2018-04-28 13:36] VITALS: BP 129/70
== END 2018-04-28 14:05 | disposition home or self-care (01) | DRG 184 ==
LOC: ER 09:22 → MS 13:28
PROVIDERS: ADMIT Internal Medicine; ATTEND Internal Medicine
CPT/HCPCS: 36415; 71275; 74177; 76705; 80048; 80053; 80307; 80320; 81001; 82550; 83605; 83690; 84443; 84484; 85025; 85379; 87040; 90686; 93005; 96361; 96365; 96366; 96367; 99285; G0479; G0481

== ENCOUNTER 2019-02-23 11:12 | Inpatient (IN) ==
--- NOTE | 2019-02-23 11:22 | ERNOTE ---
Medical Problem HPI - Narrative Date of Service: 02/23/19 - General Chief Complaint: Nausea/Vomiting Time Seen by Provider: 02/23/19 11:22 Source: patient Exam Limitations: no limitations - Immun/Allergies/Home Medications Immunizations: IMMUNIZATION HX Immunizations Up to Date Yes History of Influenza Vaccine Yes Hx Pneumococcal Vaccination No Allergies/Adverse Reactions: Allergies latex Allergy (Intermediate, Verified 02/23/19 10:59) Hives paroxetine [From Paxil] Adverse Reaction (Intermediate, Verified 02/23/19 10:59) Altered Mental Status Home Medications: HOME MEDICATIONS folic acid 1 mg tablet 1 mg PO DAILY 12/29/18 [Last Taken 01/10/19] magnesium 250 mg tablet 250 mg PO DAILY 12/29/18 [Last Taken 01/10/19] potassium 99 mg tablet 99 mg PO DAILY 12/29/18 [Last Taken 01/10/19] thiamine HCl (vitamin B1) 100 mg tablet 100 mg PO DAILY 12/29/18 [Last Taken 01/10/19] gabapentin 300 mg capsule 300 mg PO TID #90 cap 02/23/19 [Last Taken Unknown] lorazepam 0.5 mg tablet 0.5 mg PO TID PRN #90 tab 02/23/19 [Last Taken Unknown] trazodone 50 mg tablet 50 mg PO HS PRN #30 tab 02/23/19 [Last Taken Unknown] vortioxetine 20 mg tablet 20 mg PO DAILY #30 tab 02/23/19 [Last Taken Unknown] - Pain Score Pain Score #1 Pain Score: 0 - History of Present History Narrative: The patient is a 63 year old male who presents for nausea and vomiting which has been present for 3 days. There are associated symptoms of lightheadedness. The patient denies pain. There are no alleviating factors. There are aggravating factors of oral intake. Previous treatments have included: none. The past medical history includes: anxiety, depression and former alcohol abuse. Patient denies alcohol use for several weeks. The social history is negative for tobacco use. The patient has had no known ill contacts. Patient denies blood in vomitus. Patient states last bowel movement have been several days ago. Patient reports multiple episodes of vomiting today. Review of Systems - Review of Systems Constitutional: Present: weakness, fatigue. Absent: fever EYE: Present: no symptoms reported ENT: Present: no symptoms reported. Absent: ear pain, nasal drainage, sore throat Respiratory: Present: no symptoms reported. Absent: shortness of breath, cough Cardiology: Present: no symptoms reported. Absent: chest pain Gastrointestinal/Abdominal: Present: nausea, vomiting, eating less, drinking less. Absent: diarrhea, constipation, abdominal pain Genitourinary: Present: decreased urinary output. Absent: dysuria Musculoskeletal: Present: back pain - chronic without change Skin: Present: no symptoms reported. Absent: rash Neurological: Present: dizziness/light-headedness, weakness. Absent: headache All Other Systems: All systems neg except as marked Medical History (Updated 01/11/19 @ 08:57 by Kathy Hodge RN) Elbow pain, right (Acute) Onset Date: Unknown Cubital tunnel syndrome on right (Acute) Onset Date: Unknown Insomnia due to mental disorder (Chronic) Major depression (Chronic) Alcohol dependence (Chronic) Gout Onset Date: Unknown Non-tobacco user Spinal stenosis with disc desiccation at L2-L3, L3-L4, L4-L5 former recreational drug use Acute ulcer of stomach Onset Date: Unknown Alcohol abuse p/t reports drinking wine daily but reports "nothing like I used to" Anxiety Onset Date: Unknown Depression Onset Date: Unknown Low back pain Onset Date: Unknown Alcoholic delirium Gastrointestinal tract hemorrhage Onset Date: Unknown Surgical History: Surgical History (Updated 01/25/19 @ 08:32 by Earl Gann MA) S/P cubital tunnel release Onset Date: ~01/11/19 Right ulnar nerve decompression at the cubital tunnel Dr. Azul History of spinal fusion Onset Date: ~2002 L4/L5 by Mikayla Family History: Family History (Last Reviewed 02/23/19 @ 11:36 by TALI Diane) Mother COPD (chronic obstructive pulmonary disease) Sister Alive and well Father Kidney stone Grandfather Heart disease maternal Cancer paternal Sister No problems noted. Daughter Unknown whether patient has any health problems Daughter Unknown whether patient has any health problems Daughter Unknown whether patient has any health problems Grandmother Unknown whether patient has any health problems paternal Grandmother Unknown whether patient has any health problems maternal Social History: (Last Reviewed 02/23/19 @ 11:36 by TALI Diane) Social History: adopted: No foster care: No alf: No Marital status: caregiver/support person: No current occupational status: retired current occupation: retired current occupational exposures/hazards: Yes Highest education level completed: high school graduate Tobacco: Smoking Status: Never smoker Alcohol: alcohol intake: current alcohol intake frequency: a few times a week Substance Use: substance use type: former substance user, crack/cocaine, marijuana, other details: glue Dietary Habits: caffeine: Yes Type: carbonated beverages Physical Exam - Physical Exam General Appearance: Present: wd/wn, alert, moderate distress Head Exam: Present: normal inspection, no evidence of injury Eye Exam: Normal inspection: bilateral, PERRL: bilateral Neck: Present: normal inspection, nontender Respiratory: Present: no respiratory distress, normal breath sounds, no accessory muscle use, lungs clear Cardiovascular/Chest: Present: no murmur, tachycardia Gastrointestinal/Abdominal: Present: normal bowel sounds, nontender, nondistended, soft, no organomegaly Extremity Exam: Present: no edema Neurological Exam: Present: alert, oriented, normal mood/affect, no motor/sensory deficits, [employer] II-XII nml as tested Skin Exam: Present: normal color, warm/dry Progress - Date and Time Seen: Date and Time: 02/23/19 13:07 Discussed case with , requesting gallbladder US prior to admission due to slight elevation of liver enzymes. 02/23/19 14:14 Case discussed with and given results of negative US. Will admit for dehydration and orthostatic hypotension. requests IV protonix be given. - Results and Orders Patient's Lab Results:: I have reviewed the patient's lab results. - Vital Signs Patient's Vital Signs:: I have reviewed the patient's vital signs. Vital Signs: Vital Signs 02/23/19 11:12 Temperature 36.2 C Pulse Rate 103 H Respiratory Rate 14 Blood Pressure 105/70 O2 Sat by Pulse Oximetry 96 Review of orthostatic vitals. - EKG EKG #1 EKG: NSR - tachycardia, nonspecific ST T wave changes, other - supraventricular premature complexes EKG read: Reviewed by me - X-Ray X-Ray #1 X-Ray: abdomen Interpretation: Reviewed by me X-ray Comments: IMPRESSION: 1. Nonobstructive bowel gas pattern. 2. Right-sided intrarenal calcification suggested measuring up to 4.8 mm. 3. Additional comments are as above. Electronically signed by Janee Dunn M.D.. - CT/Ultrasound CT/Ultrasound Narrative: IMPRESSION: 1. Negative for gallstones or acute cholecystitis. 2. No evidence for abnormal extrahepatic ductal dilation. Electronically signed by Janee Dunn M.D.. - Progress/Reassessment Chief Complaint: Nausea/Vomiting Departure Clinical Impression: Orthostatic hypotension, Hypokalemia - Departure Disposition: Still a patient Condition: Fair
[2019-02-23] MEDS ORDERED: NORMAL SALINE 1,000 ML IV PRN (11:29)
[2019-02-23] MEDS ORDERED: ONDANSETRON HCL/PF 2 MG/ML VIAL IV ONE (11:29)
[2019-02-23 11:59] LABS: Hematocrit 45.3 % (42.0-52.0); Hemoglobin 16.6 gm/dL (13.5-18.0); Mean Cell Volume 91.3 fl (78-100); Mean Corpuscular Hemoglobin 33.5 pg (27-31); Mean Corpuscular Hgb Conc 36.6 g/dl (32-36); Mean Platelet Volume 10.5 fl (8-11.3); Platelet Count 134 K/mm3 (150-450); Red Blood Count 4.96 M/mm3 (4.7-6.0); Red Cell Distribution Width 13.2 % (11.5-14.0); White Blood Count 12.2 K/mm3 (4.0-10.5)
[2019-02-23 12:02] LABS: Total Cells Counted 100
[2019-02-23 12:14] LABS: ALT 81 U/L (19-67); AST 104 U/L (0-48); Albumin * 3.3 gm/dl (3.4-5.0); Alkaline Phosphatase * 63 U/L (50-170); Amylase * 57 U/L (25-115); BUN/Creatinine Ratio 39.3 (9.0-21.6); Bilirubin, Total 3.4 mg/dL (0.0-1.1); Blood Urea Nitrogen 57 mg/dL (6-23); Ca. Corrected For Albumin 8.7 mg/dL (8.4-10.2); Calcium * 8.5 mg/dL (7.9-10.9); Carbon Dioxide 36.2 mmol/L (24-32.6); Chloride 82 mmol/L (97-106); Glucose * 134 mg/dL (70-110); Lipase 288 U/L (73-393); Magnesium 1.9 mg/dL (1.2-2.8); Sodium 128 mmol/L (132-142); Total Protein 6.8 gm/dL (6.2-8.2)
[2019-02-23 12:15] LABS: Lymphocyte 10 % (20-51); Monocyte 24 % (0-9); Neutrophil 66 % (42-75); Neutrophil # 8.1 K/mm3 (1.3-6.0)
[2019-02-23 12:16] LABS: Platelet Estimate Normal (NORMAL); RBC Morphology Normal (NORMAL)
[2019-02-23 12:26] LABS: Potassium 2.2 mmol/L (3.4-4.6); Troponin I 0.032 ng/mL (0.00-0.10)
[2019-02-23] MEDS: POTASSIUM CHLORIDE IN WATER 100 ML IV SCH ×4 (12:40→16:14)
[2019-02-23] MEDS: NORMAL SALINE 1,000 ML IV PRN ×2 (14:06→20:38)
[2019-02-23 15:25] LABS: Urine Bilirubin 1 mg/dl (NEGATIVE); Urine Blood Negative /ul (NEGATIVE); Urine Ketone 15 mg/dL (NEGATIVE); Urine Nitrite Negative (NEGATIVE); Urine Protein Negative (NEGATIVE); Urine Urobilinogen >=8.0 EU/dl (NORMAL)
--- NOTE | 2019-02-23 15:43 | HP ---
Chief Complaint - Chief Complaint Date of Service: 02/23/19 Time of Service: 15:42 Chief Complaint: nausea/vomiting History of Present Illness: Recheck jayden is a 63-year-old white male with past medical history of chronic alcohol dependence, depression, insomnia, history of acute gastric ulcer, who was following up with his psychologist and was sent to the emergency room and admitted on 02/23/2019 because of persistent nausea and vomiting. The patient has been sober and dry for the last 8 weeks. 3 days prior to admission he started having nausea and vomiting so much so that he thinks he must have filled out 3 small wastebasket so fluid. He denied going to a restaurant to eat or eat something from his refrigerator. His last bowel movement was about 3 to 4 days ago. He denies any fever or chills, denies any headache, blurring of vision, denied abdominal pain, denies any hematemesis or hematochezia or melena. In the emergency room the patient was found to be orthostatic with a potassium of 2.2, sodium 128, elevated ALT /AST and bilirubin, lactic acid, WBC, BUN/creatinine. His EKG showed sinus rhythm with nonspecific ST-T wave changes. He is abdominal x-ray showed no evidence of obstruction, right intrarenal calcification. His ultrasound of the gallbladder showed no evidence of cholelithiasis or dilated ducts. The patient was admitted for further evaluation and treatment. Medical History (Updated 02/23/19 @ 16:16 by Dana Berkowitz MD) Elbow pain, right (Acute) Onset Date: Unknown Cubital tunnel syndrome on right (Acute) Onset Date: Unknown Insomnia due to mental disorder (Chronic) Major depression (Chronic) Alcohol dependence (Chronic) Gout Onset Date: Unknown Non-tobacco user Spinal stenosis with disc desiccation at L2-L3, L3-L4, L4-L5 former recreational drug use Acute ulcer of stomach Onset Date: Unknown Alcohol abuse p/t reports drinking wine daily but reports "nothing like I used to" Anxiety Onset Date: Unknown Depression Onset Date: Unknown Low back pain Onset Date: Unknown Alcoholic delirium Gastrointestinal tract hemorrhage Onset Date: Unknown Surgical History: Surgical History (Updated 02/23/19 @ 15:43 by Dana Berkoiwtz MD) S/P cubital tunnel release Onset Date: ~01/11/19 Right ulnar nerve decompression at the cubital tunnel Dr. Azul History of spinal fusion Onset Date: ~2002 L4/L5 by Mikayla Family History: Family History (Last Reviewed 02/23/19 @ 15:26 by Cipriano Quezada RN) Mother COPD (chronic obstructive pulmonary disease) Sister Alive and well Father Kidney stone Grandfather Heart disease maternal Cancer paternal Sister No problems noted. Daughter Unknown whether patient has any health problems Daughter Unknown whether patient has any health problems Daughter Unknown whether patient has any health problems Grandmother Unknown whether patient has any health problems paternal Grandmother Unknown whether patient has any health problems maternal Social History: (Last Updated 02/23/19 @ 15:29 by Cipriano Quezada RN) Social History: adopted: No foster care: No correction: No Marital status: / lives independently: Yes lives independently comment: 2 cats caregiver/support person: Yes caregiver/support person comment: Daughter current occupational status: retired current occupation: retired current occupational exposures/hazards: Yes Highest education level completed: high school graduate Tobacco: Smoking Status: Never smoker Alcohol: alcohol intake: former Alcohol type: wine alcohol intake frequency: 0-2 drinks per day details: Patient states he gave up drinking wine a few weeks ago d/t surgery. Substance Use: substance use type: former substance user, crack/cocaine, marijuana, other details: glue Dietary Habits: caffeine: Yes Type: carbonated beverages Review Of Systems (GEN) - Review of Systems Generalized/Overall Review: Present: Weakness, Chills. Absent: Fever EENTM: Absent: Blurred Vision, Double Vision Respiratory: Absent: Cough, Shortness of Breath, Orthopnea Cardiac: Absent: Chest Pain, Edema, Palpitations Abdominal: Present: Nausea, Vomiting, Constipation - but he says he has not eaten wll for the last 3-4 days. Absent: Hematemesis, Abdominal Pain, Diarrhea, Melena, Bright blood from rectum Genitourinary: Absent: Urgency, Frequency, Dysuria Musculoskeletal: Present: Other - no flank pains. Absent: Back Pain Neurological: Present: Depressed. Absent: Headache Skin: Absent: Lesions, Rash Endocrine: Absent: Intolerance to Cold Immunizations: IMMUNIZATION HX Immunizations Up to Date Yes History of Influenza Vaccine Yes Hx Pneumococcal Vaccination No Allergies/Adverse Reactions: Allergies Allergy/AdvReac Type Severity Reaction Status Date / Time latex Allergy Intermediate Hives Verified 02/23/19 15:30 paroxetine [From Paxil] AdvReac Intermediate Altered Verified 02/23/19 15:30 Mental Status Home Medications: HOME MEDICATIONS folic acid 1 mg tablet 1 mg PO DAILY 12/29/18 [Last Taken 01/10/19] magnesium 250 mg tablet 250 mg PO DAILY 12/29/18 [Last Taken 01/10/19] potassium 99 mg tablet 99 mg PO DAILY 12/29/18 [Last Taken 01/10/19] thiamine HCl (vitamin B1) 100 mg tablet 100 mg PO DAILY 12/29/18 [Last Taken 01/10/19] gabapentin 300 mg capsule 300 mg PO TID #90 cap 02/23/19 [Last Taken Unknown] lorazepam 0.5 mg tablet 0.5 mg PO TID PRN #90 tab 02/23/19 [Last Taken Unknown] trazodone 50 mg tablet 50 mg PO HS PRN #30 tab 02/23/19 [Last Taken Unknown] vortioxetine 20 mg tablet 20 mg PO DAILY #30 tab 02/23/19 [Last Taken Unknown] Exam - Exam Vital Signs: Vital Signs - Last Taken Temp 37.0 C 02/23/19 15:21 Pulse 89 02/23/19 15:21 Resp 18 02/23/19 15:21 BP 108/64 02/23/19 15:21 Pulse Ox 95 02/23/19 15:21 Constitutional: Present: Alert, Oriented x3, Cooperative ENT Exam: Present: hearing grossly normal Eye Exam: bilateral eye: normal inspection, PERRL, EOMI Back Exam: Present: no CVA tenderness Respiratory: Present: normal breath sounds, No rales, No wheezing Cardiovascular/Chest: Present: regular rate, rhythm, no JVD, no murmur Abdomen: Present: Normal bowel sounds, soft, nontender Extremity: Present: no pedal edema, no calf tenderness 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, no motor/sensory deficits, oriented x 3 Thoughts: Present: normal thought pattern Diagnostic Studies: Abnormal Lab Results 02/23/19 02/23/19 02/23/19 Range/Units 11:50 11:50 11:50 WBC 12.2 H (4.0-10.5) K/mm3 MCH 33.5 H (27-31) pg MCHC 36.6 H (32-36) g/dl Plt Count 134 L (150-450) K/mm3 Lymphocytes % (Manual) 10 L (20-51) % Monocytes % (Manual) 24 H (0-9) % Neutrophils # (Manual) 8.1 H (1.3-6.0) K/mm3 Lymphocytes # (Manual) 1.2 L (1.5-3.5) k/mm3 Monocytes # (Manual) 2.9 H (0.0-1.0) k/mm3 Sodium 128 L (132-142) mmol/L Plasma Sodium 129 L (130-142) mmol/L Potassium 2.2 L* D (3.4-4.6) mmol/L Chloride 82 L (97-106) mmol/L Carbon Dioxide 36.2 H (24-32.6) mmol/L BUN 57 H D (6-23) mg/dL Creatinine 1.45 H D (0.4-1.4) mg/dL Est GFR (Non-Af Amer) 52 L D (60-130) mL/min BUN/Creatinine Ratio 39.3 H (9.0-21.6) Random Glucose 134 H (70-110) mg/dL Lactic Acid, Venous 3.3 H* (0.4-2.0) mmol/L Total Bilirubin 3.4 H (0.0-1.1) mg/dL AST 104 H (0-48) U/L ALT 81 H (19-67) U/L Albumin 3.3 L (3.4-5.0) gm/dl Laboratory Results WBC 12.2 K/mm3 (4.0-10.5) H 02/23/19 11:50 RBC 4.96 M/mm3 (4.7-6.0) 02/23/19 11:50 Hgb 16.6 gm/dL (13.5-18.0) 02/23/19 11:50 Hct 45.3 % (42.0-52.0) 02/23/19 11:50 MCV 91.3 fl (78-100) 02/23/19 11:50 MCH 33.5 pg (27-31) H 02/23/19 11:50 MCHC 36.6 g/dl (32-36) H 02/23/19 11:50 RDW 13.2 % (11.5-14.0) 02/23/19 11:50 Plt Count 134 K/mm3 (150-450) L 02/23/19 11:50 MPV 10.5 fl (8-11.3) 02/23/19 11:50 66 % (42-75) 02/23/19 11:50 10 % (20-51) L 02/23/19 11:50 24 % (0-9) H 02/23/19 11:50 8.1 K/mm3 (1.3-6.0) H 02/23/19 11:50 1.2 k/mm3 (1.5-3.5) L 02/23/19 11:50 2.9 k/mm3 (0.0-1.0) H 02/23/19 11:50 Normal (NORMAL) 02/23/19 11:50 RBC Morphology Normal (NORMAL) 02/23/19 11:50 Sodium 128 mmol/L (132-142) L 02/23/19 11:50 129 mmol/L (130-142) L 02/23/19 11:50 Potassium 2.2 mmol/L (3.4-4.6) L* D 02/23/19 11:50 Chloride 82 mmol/L (97-106) L 02/23/19 11:50 Carbon Dioxide 36.2 mmol/L (24-32.6) H 02/23/19 11:50 12.0 mmol/L (6.8-13.8) 02/23/19 11:50 BUN 57 mg/dL (6-23) H D 02/23/19 11:50 1.45 mg/dL (0.4-1.4) H D 02/23/19 11:50 Est GFR (Non-Af Amer) 52 mL/min (60-130) L D 02/23/19 11:50 39.3 (9.0-21.6) H 02/23/19 11:50 134 mg/dL (70-110) H 02/23/19 11:50 3.3 mmol/L (0.4-2.0) H* 02/23/19 11:50 Calcium 8.5 mg/dL (7.9-10.9) 02/23/19 11:50 Calcium Adj for Albumin 8.7 mg/dL (8.4-10.2) 02/23/19 11:50 Magnesium 1.9 mg/dL (1.2-2.8) 02/23/19 11:50 3.4 mg/dL (0.0-1.1) H 02/23/19 11:50 AST 104 U/L (0-48) H 02/23/19 11:50 ALT 81 U/L (19-67) H 02/23/19 11:50 63 U/L (50-170) 02/23/19 11:50 0.032 ng/mL (0.00-0.10) 02/23/19 11:50 6.8 gm/dL (6.2-8.2) 02/23/19 11:50 3.3 gm/dl (3.4-5.0) L 02/23/19 11:50 Amylase 57 U/L (25-115) 02/23/19 11:50 288 U/L (73-393) 02/23/19 11:50 Ethyl Alcohol Less than 3.0 mg/dL (0.0-10.0) 02/23/19 11:50 Assessment/Plan - Narrative Narrative: Persistent nausea and vomiting likely gastrointestinal either from an acute viral gastroenteritis or acute gastritis. Unlikely central in etiology or medication induced. His urine drug screen was negative. We will continue with IV fluid replacement with NSS, potassium replacement, IV protonix. Intrarenal calcification on AXR-His UA did not show blood or RBC and he has no flank pain. Consider doing IVANNA if BUN/Cr does not improve. - Assessment/Plan (1) Nausea & vomiting Problem: Acute (2) Hypokalemia Assessment: due to N/V/ARF Problem: Acute (3) Hyponatremia Assessment: due to N/V Problem: Acute (4) Acute kidney failure Assessment: prerenal due to N/V Problem: Acute (5) Lactic acidosis Assessment: due to decreased peripheral perfusion from decreased effective bllod/fluid volume Problem: Acute (6) Orthostatic hypotension Assessment: due dehydration Problem: Acute (7) Insomnia due to mental disorder Problem: Chronic (8) Major depression Problem: Chronic Qualifiers: Major depression recurrence: recurrent Active/Remission status: currently active Major depression episode severity: moderate Qualified Code(s): F33.1 - Major depressive disorder, recurrent, moderate (9) Alcohol dependence Problem: Chronic Qualifiers: Substance use status: in remission Qualified Code(s): F10.21 - Alcohol dependence, in remission
[2019-02-23 15:44] LABS: Urine Appearance Slightly Cloudy (CLEAR); Urine Bacteria TRACE; Urine Color Dark Yellow; Urine RBC None Seen /hpf (0-5); Urine WBC None Seen /hpf (0-5)
[2019-02-23 15:48] LABS: Cocaine Ur Negative (NEGATIVE); Urine Barbiturate Negative (NEGATIVE); Urine Benzodiazepines Negative (NEGATIVE); Urine Opiates Negative (NEGATIVE); Urine PCP Negative (NEGATIVE); Urine THC Negative (NEGATIVE)
[2019-02-23] MEDS ORDERED: traZODone HCL 50 MG TABLET PO PRN (16:16)
[2019-02-23] MEDS ORDERED: ONDANSETRON HCL/PF 2 MG/ML VIAL IV PRN (16:20)
[2019-02-23] MEDS: PANTOPRAZOLE SODIUM 40 MG in NORMAL SALINE 100 ML IV SCH (17:06)
[2019-02-23] MEDS: GABAPENTIN 300 MG CAPSULE PO SCH (17:07)
[2019-02-23] MEDS: POTASSIUM CHLORIDE 10 MEQ TABLET.SA PO SCH (17:07)
[2019-02-23] MEDS: LORazepam 0.5 MG TABLET PO PRN (20:41)
[2019-02-24] MEDS: NORMAL SALINE 1,000 ML IV PRN ×3 (03:20→21:02)
[2019-02-24 06:40] LABS: Hematocrit 36.9 % (42.0-52.0); Hemoglobin 12.8 gm/dL (13.5-18.0); Mean Cell Volume 97.4 fl (78-100); Mean Corpuscular Hemoglobin 33.8 pg (27-31); Mean Corpuscular Hgb Conc 34.7 g/dl (32-36); Mean Platelet Volume 10.3 fl (8-11.3); Platelet Count 111 K/mm3 (150-450); Red Blood Count 3.79 M/mm3 (4.7-6.0); Red Cell Distribution Width 13.6 % (11.5-14.0); White Blood Count 9.2 K/mm3 (4.0-10.5)
[2019-02-24 06:41] LABS: Albumin * 2.5 gm/dl (3.4-5.0); Anion Gap 10.2 mmol/L (6.8-13.8); BUN/Creatinine Ratio 27.5 (9.0-21.6); Bilirubin, Total 2.2 mg/dL (0.0-1.1); Ca. Corrected For Albumin 8.5 mg/dL (8.4-10.2); Calcium * 7.6 mg/dL (7.9-10.9); Carbon Dioxide 32.7 mmol/L (24-32.6); Potassium 2.9 mmol/L (3.4-4.6); Total Protein 5.2 gm/dL (6.2-8.2)
[2019-02-24 06:47] LABS: Total Cells Counted 100
[2019-02-24 07:25] LABS: Atypical (Reactive) Lymph 1 % (0-2); Eosinophil 3 % (0-3); Lymphocyte 20 % (20-51); Monocyte 15 % (0-9); Neutrophil 61 % (42-75); Neutrophil # 5.6 K/mm3 (1.3-6.0)
[2019-02-24 07:26] LABS: Platelet Estimate Normal (NORMAL)
[2019-02-24 07:27] LABS: RBC Morphology Normal (NORMAL)
[2019-02-24] MEDS: ENOXAPARIN SODIUM 40 MG/0.4 ML SYRG SC SCH (08:19)
[2019-02-24] MEDS: THIAMINE HCL 100 MG TABLET PO SCH (08:20)
[2019-02-24] MEDS: MAGNESIUM OXIDE 400 MG TABLET PO SCH (08:20)
[2019-02-24] MEDS: FOLIC ACID 1 MG TABLET PO SCH (08:20)
[2019-02-24] MEDS: GABAPENTIN 300 MG CAPSULE PO SCH ×3 (08:20→16:01)
[2019-02-24] MEDS: POTASSIUM CHLORIDE IN WATER 100 ML IV SCH ×2 (08:20→09:33)
[2019-02-24] MEDS: POTASSIUM CHLORIDE 10 MEQ TABLET.SA PO SCH ×2 (08:20→16:01)
[2019-02-24] MEDS: Vortioxetine Hydrobromide [Trintellix] 20 MG PO SCH (08:21)
--- NOTE | 2019-02-24 08:29 | PN ---
Subjective - Date and Time Seen Date: 02/24/19 - t Time: 08:20 Subjective Narrative: Patient is feeling better but still feels weak. K is up to 2.9 from 2.2. Objective - Review of Systems Generalized/Overall Review: Reports: Weakness. Denies: Chills, Fever EENTM: Denies: Blurred Vision Respiratory: Denies: Cough, Shortness of Breath Cardiac: Denies: Chest Pain, Edema, Palpitations Abdominal: Denies: Nausea, Vomiting, Abdominal Pain Genitourinary Symptoms: Denies: Urgency, Frequency Musculoskeletal Complaints: Denies: Joint Pain, Back Pain Neurological: Reports: Anxiety, Depressed Endocrine: Denies: Intolerance to Cold, Intolerance to Heat Misc: All systems neg except as marked - Vitals Vitals: Last Vital Signs Temp 36.8 C 02/24/19 06:25 Pulse 100 02/24/19 08:04 Resp 20 02/24/19 06:25 BP 113/51 02/24/19 06:25 Pulse Ox 98 02/24/19 06:25 - Abnormal Lab Findings Abnormal Lab Findings: Abnormal Lab Results 02/23/19 02/23/19 02/23/19 Range/Units 11:50 11:50 11:50 WBC 12.2 H (4.0-10.5) K/mm3 RBC (4.7-6.0) M/mm3 Hgb (13.5-18.0) gm/dL Hct (42.0-52.0) % MCH 33.5 H (27-31) pg MCHC 36.6 H (32-36) g/dl Plt Count 134 L (150-450) K/mm3 Lymphocytes % (Manual) 10 L (20-51) % Monocytes % (Manual) 24 H (0-9) % Neutrophils # (Manual) 8.1 H (1.3-6.0) K/mm3 Lymphocytes # (Manual) 1.2 L (1.5-3.5) k/mm3 Monocytes # (Manual) 2.9 H (0.0-1.0) k/mm3 Sodium 128 L (132-142) mmol/L Plasma Sodium 129 L (130-142) mmol/L Potassium 2.2 L* D (3.4-4.6) mmol/L Chloride 82 L (97-106) mmol/L Carbon Dioxide 36.2 H (24-32.6) mmol/L BUN 57 H D (6-23) mg/dL Creatinine 1.45 H D (0.4-1.4) mg/dL Est GFR (Non-Af Amer) 52 L D (60-130) mL/min BUN/Creatinine Ratio 39.3 H (9.0-21.6) Random Glucose 134 H (70-110) mg/dL Lactic Acid, Venous 3.3 H* (0.4-2.0) mmol/L Calcium (7.9-10.9) mg/dL Total Bilirubin 3.4 H (0.0-1.1) mg/dL AST 104 H (0-48) U/L ALT 81 H (19-67) U/L Total Protein (6.2-8.2) gm/dL Albumin 3.3 L (3.4-5.0) gm/dl Urine Bilirubin (NEGATIVE) mg/dl Urine Urobilinogen (NORMAL) EU/dl 02/23/19 02/23/19 02/24/19 Range/Units 15:15 15:17 06:24 WBC (4.0-10.5) K/mm3 RBC 3.79 L (4.7-6.0) M/mm3 Hgb 12.8 L (13.5-18.0) gm/dL Hct 36.9 L (42.0-52.0) % MCH 33.8 H (27-31) pg MCHC (32-36) g/dl Plt Count 111 L (150-450) K/mm3 Lymphocytes % (Manual) (20-51) % Monocytes % (Manual) 15 H (0-9) % Neutrophils # (Manual) (1.3-6.0) K/mm3 Lymphocytes # (Manual) (1.5-3.5) k/mm3 Monocytes # (Manual) 1.4 H (0.0-1.0) k/mm3 Sodium (132-142) mmol/L Plasma Sodium (130-142) mmol/L Potassium (3.4-4.6) mmol/L Chloride (97-106) mmol/L Carbon Dioxide (24-32.6) mmol/L BUN (6-23) mg/dL Creatinine (0.4-1.4) mg/dL Est GFR (Non-Af Amer) (60-130) mL/min BUN/Creatinine Ratio (9.0-21.6) Random Glucose (70-110) mg/dL Lactic Acid, Venous 2.3 H* (0.4-2.0) mmol/L Calcium (7.9-10.9) mg/dL Total Bilirubin (0.0-1.1) mg/dL AST (0-48) U/L ALT (19-67) U/L Total Protein (6.2-8.2) gm/dL Albumin (3.4-5.0) gm/dl Urine Bilirubin 1 H (NEGATIVE) mg/dl Urine Urobilinogen >=8.0 H (NORMAL) EU/dl 02/24/19 Range/Units 06:24 WBC (4.0-10.5) K/mm3 RBC (4.7-6.0) M/mm3 Hgb (13.5-18.0) gm/dL Hct (42.0-52.0) % MCH (27-31) pg MCHC (32-36) g/dl Plt Count (150-450) K/mm3 Lymphocytes % (Manual) (20-51) % Monocytes % (Manual) (0-9) % Neutrophils # (Manual) (1.3-6.0) K/mm3 Lymphocytes # (Manual) (1.5-3.5) k/mm3 Monocytes # (Manual) (0.0-1.0) k/mm3 Sodium (132-142) mmol/L Plasma Sodium (130-142) mmol/L Potassium 2.9 L D (3.4-4.6) mmol/L Chloride 93 L (97-106) mmol/L Carbon Dioxide 32.7 H (24-32.6) mmol/L BUN 30 H (6-23) mg/dL Creatinine (0.4-1.4) mg/dL Est GFR (Non-Af Amer) (60-130) mL/min BUN/Creatinine Ratio 27.5 H (9.0-21.6) Random Glucose (70-110) mg/dL Lactic Acid, Venous (0.4-2.0) mmol/L Calcium 7.6 L (7.9-10.9) mg/dL Total Bilirubin 2.2 H (0.0-1.1) mg/dL AST 58 H (0-48) U/L ALT (19-67) U/L Total Protein 5.2 L (6.2-8.2) gm/dL Albumin 2.5 L (3.4-5.0) gm/dl Urine Bilirubin (NEGATIVE) mg/dl Urine Urobilinogen (NORMAL) EU/dl - Exam Constitutional: Present: Alert, Oriented x3, Cooperative ENT Exam: Present: hearing grossly normal Neck: Present: supple. Absent: lymphadenopathy (R), lymphadenopathy (L) Respiratory: Present: decreased breath sounds, No rales, No wheezing Cardiovascular/Chest: Present: regular rate, rhythm, no JVD, no murmur Abdomen: Present: Normal bowel sounds, soft, nontender, nondistended Extremity: Present: no calf tenderness, pedal edema Assessment/Plan Plan Narrative: Will continue with present management and current medications. His N/V is likely form acute gastritis wiht h/o of alcoholism. Continue with PPI. Will get a IVANNA in case that intrarenal calcification is causing N/V but unlikely as he doies not have any CVA /flank pain form it. Will decrease his IVF, give extra K riders and continue with PO k BID. Will advance diet , if tolerated and if K is back to normal-possible discharge in the morning with protonix. - Problems/Diagnosis (1) Hypokalemia Problem: Acute (2) Nausea & vomiting Problem: Resolved Narrative: likely due to acute gastritis. (3) Hyponatremia Problem: Acute (4) Acute kidney failure Problem: Resolved (5) Lactic acidosis Problem: Resolved (6) Orthostatic hypotension Problem: Acute (7) Insomnia due to mental disorder Problem: Chronic (8) Major depression Problem: Chronic Qualifiers: Major depression recurrence: recurrent Active/Remission status: currently active Major depression episode severity: moderate Qualified Code(s): F33.1 - Major depressive disorder, recurrent, moderate (9) Alcohol dependence Problem: Chronic Qualifiers: Substance use status: in remission Qualified Code(s): F10.21 - Alcohol dependence, in remission
[2019-02-24] MEDS: LORazepam 0.5 MG TABLET PO PRN ×2 (13:05→19:02)
[2019-02-24] MEDS: PANTOPRAZOLE SODIUM 40 MG in NORMAL SALINE 100 ML IV SCH (15:43)
[2019-02-25 06:23] LABS: Albumin * 2.4 gm/dl (3.4-5.0); Anion Gap 9.9 mmol/L (6.8-13.8); BUN/Creatinine Ratio 21.5 (9.0-21.6); Bilirubin, Total 1.3 mg/dL (0.0-1.1); Ca. Corrected For Albumin 8.3 mg/dL (8.4-10.2); Calcium * 7.3 mg/dL (7.9-10.9); Carbon Dioxide 29.8 mmol/L (24-32.6); Potassium 3.7 mmol/L (3.4-4.6); Total Protein 4.7 gm/dL (6.2-8.2)
[2019-02-25] MEDS: ENOXAPARIN SODIUM 40 MG/0.4 ML SYRG SC SCH (07:00)
[2019-02-25] MEDS: FOLIC ACID 1 MG TABLET PO SCH (08:06)
[2019-02-25] MEDS: THIAMINE HCL 100 MG TABLET PO SCH (08:07)
[2019-02-25] MEDS: Vortioxetine Hydrobromide [Trintellix] 20 MG PO SCH (08:07)
[2019-02-25] MEDS: MAGNESIUM OXIDE 400 MG TABLET PO SCH (08:07)
[2019-02-25] MEDS: POTASSIUM CHLORIDE 10 MEQ TABLET.SA PO SCH ×2 (08:07→17:29)
[2019-02-25] MEDS: GABAPENTIN 300 MG CAPSULE PO SCH ×3 (08:07→17:29)
--- NOTE | 2019-02-25 10:30 | DS ---
(1) Gastritis Problem: Acute Qualifiers: Gastritis type: alcoholic Chronicity: acute (2) Hypokalemia Problem: Resolved (3) Hyponatremia Problem: Resolved (4) Acute kidney failure Problem: Resolved Description of Stay: Arie Coburn is a 63 yo male with history of alcoholism, although he reports no alcohol over the last 8 weeks. He was admitted with hyponatremia, hypokalemia, acute kidney injury secondary to gastritis and dehydration. He was treated with IV fluids and electrolytes were replaced. His electrolytes and kidney function returned to normal and he is eating and drinking well. He was started on Protonix for gastritis and will be sent home on this rx for the next month. I suspect that he had alcohol gastritis that caused poor oral intake and dehydration, which led to the electrolyte imbalance. He was educated to stay hydrated and eat good nutrition and to continue to avoid alcohol. He did not have any evidence of alcohol withdrawal in the hospital and alcohol level was undetectable on admission. Procedures Performed: none Results and Findings: Lab Pending Results 02/23/19 11:50: WBC 12.2 H, RBC 4.96, Hgb 16.6, Hct 45.3, MCV 91.3, MCH 33.5 H, MCHC 36.6 H, RDW 13.2, Plt Count 134 L, MPV 10.5, Neutrophils % (Manual) 66, Lymphocytes % (Manual) 10 L, Monocytes % (Manual) 24 H, Neutrophils # (Manual) 8.1 H, Lymphocytes # (Manual) 1.2 L, Monocytes # (Manual) 2.9 H, Platelet Estimate Normal, RBC Morphology Normal 02/23/19 11:50: Sodium 128 L, Plasma Sodium 129 L, Potassium 2.2 L* D, Chloride 82 L, Carbon Dioxide 36.2 H, Anion Gap 12.0, BUN 57 H D, Creatinine 1.45 H D, Est GFR (Non-Af Amer) 52 L D, BUN/Creatinine Ratio 39.3 H, Random Glucose 134 H, Calcium 8.5, Calcium Adj for Albumin 8.7, Magnesium 1.9, Total Bilirubin 3.4 H, AST 104 H, ALT 81 H, Alkaline Phosphatase 63, Troponin I 0.032, Total Protein 6.8, Albumin 3.3 L, Amylase 57, Lipase 288, Ethyl Alcohol Less than 3.0 02/23/19 11:50: Lactic Acid, Venous 3.3 H* 02/23/19 15:15: Lactic Acid, Venous 2.3 H* 02/23/19 15:17: Urine Color Dark yellow, Urine Appearance Slightly cloudy, Urine pH 6.0, Ur Specific [place] 1.010, Urine Protein Negative, Urine Glucose (UA) Negative, Urine Ketones 15, Urine Blood Negative, Urine Nitrate Negative, Urine Bilirubin 1 H, Urine Ictotest Negative, Urine Urobilinogen >=8.0 H, Ur Leukocyte Esterase Negative, Urine RBC None seen, Urine WBC None seen, Ur Epithelial Cells Trace, Urine Bacteria Trace, Urine Culture Comments No culture indicated 02/23/19 15:17: Urine Opiates Screen Negative, Barbiturate Screen Negative, Ur Phencyclidine Scrn Negative, Urine Amphetamine Negative, U Benzodiazepines Scrn Negative, Urine Cocaine Screen Negative, Urine Marijuana (THC) Negative 02/24/19 06:24: WBC 9.2 D, RBC 3.79 L, Hgb 12.8 L, Hct 36.9 L, MCV 97.4, MCH 33.8 H, MCHC 34.7, RDW 13.6, Plt Count 111 L, MPV 10.3, Neutrophils % (Manual) 61, Lymphocytes % (Manual) 20, Monocytes % (Manual) 15 H, Eosinophils % (Manual) 3, Neutrophils # (Manual) 5.6, Lymphocytes # (Manual) 1.8, Monocytes # (Manual) 1.4 H, Eosinophils # (Manual) 0.3, Atypic/Reactive Lymphs 1, Platelet Estimate Normal, RBC Morphology Normal 02/24/19 06:24: Sodium 133, Plasma Sodium 133, Potassium 2.9 L D, Chloride 93 L, Carbon Dioxide 32.7 H, Anion Gap 10.2, BUN 30 H, Creatinine 1.09, Est GFR (Non- Af Amer) 73 D, BUN/Creatinine Ratio 27.5 H, Random Glucose 102, Calcium 7.6 L, Calcium Adj for Albumin 8.5, Total Bilirubin 2.2 H, AST 58 H, ALT 55, Alkaline Phosphatase 55, Total Protein 5.2 L, Albumin 2.5 L 02/24/19 06:24: Lactic Acid, Venous 1.4 02/25/19 05:50: Sodium 139, Plasma Sodium 139, Potassium 3.7 D, Chloride 103, Carbon Dioxide 29.8, Anion Gap 9.9, BUN 20, Creatinine 0.93, Est GFR (Non-Af Amer) 87, BUN/Creatinine Ratio 21.5, Random Glucose 97, Calcium 7.3 L, Calcium Adj for Albumin 8.3 L, Total Bilirubin 1.3 H, AST 38, ALT 45, Alkaline Phosphatase 58, Total Protein 4.7 L, Albumin 2.4 L Discharge Location: Home Disposition: Home self-care Condition: Stable Discharge Activity: Activity as tolerated Discharge Diet: General/regular food Referrals: Dana Berkowitz MD [Primary Care Provider] - One Week Problem Oriented Discharge Instructions to Patient/Family: Hypokalemia, Hyponatremia, Gastritis, Adult, [id number] Prescriptions (Any new or edited meds): Pantoprazole Sodium [Protonix] 40 mg PO DAILY #30 tablet. Complete Home Medications List: Complete Home Medication List: folic acid 1 mg tablet 1 mg PO DAILY 12/29/18 magnesium 250 mg tablet 250 mg PO DAILY 12/29/18 potassium 99 mg tablet 99 mg PO DAILY 12/29/18 thiamine HCl (vitamin B1) 100 mg tablet 100 mg PO DAILY 12/29/18 gabapentin 300 mg capsule 300 mg PO TID #90 cap 02/23/19 lorazepam 0.5 mg tablet 0.5 mg PO TID PRN #90 tab 02/23/19 trazodone 50 mg tablet 50 mg PO HS PRN #30 tab 02/23/19 vortioxetine 20 mg tablet 20 mg PO DAILY #30 tab 02/23/19 Pantoprazole Sodium [Protonix] 40 mg PO DAILY #30 tablet. 02/25/19
[2019-02-25] MEDS: LORazepam 0.5 MG TABLET PO PRN (13:51)
[2019-02-25] MEDS: PANTOPRAZOLE SODIUM 40 MG in NORMAL SALINE 100 ML IV SCH (14:33)
[2019-02-25 17:55] VITALS: BP 111/73
== END 2019-02-25 18:19 | disposition home or self-care (01) | DRG 392 ==
LOC: ER 11:12 → MS 14:21
PROVIDERS: ADMIT Internal Medicine; ATTEND Internal Medicine
CPT/HCPCS: 36415; 74019; 74020; 76705; 76770; 80053; 80307; 80320; 81001; 82150; 83605; 83690; 83735; 84484; 85007; 85025; 93005; 96361; 96365; 96366; 96375; 99285; G0481; J2405